=== PATIENT | female | born 1995 | race Two or more races ===

== ENCOUNTER 2018-03-25 04:59 | Emergency (ER) | payer MEDICAID ==
[~2018-03-25] VITALS: Ht 152.4 cm; Wt 70.3 kg
[2018-03-25 05:02] VITALS: Ht 152.4 cm; Wt 70.3 kg
[2018-03-25 06:29] LABS: microscopic required? YES; urine erythrocyte 2+ (NEGATIVE)
[2018-03-25 06:33] LABS: BASOPHIL % 0.3 % (0-2); PLATELET COUNT 253 x10^3mcL (130-400); RED CELL DISTRIBUTION WIDTH 14.1 % (11.5-14.5)
[2018-03-25 07:46] VITALS: BP 101/54
== END 2018-03-25 07:46 | disposition home or self-care (01) ==
LOC: ED 04:59
PROVIDERS: Emergency Medicine
DX: O20.0 Threatened abortion (principal)
CPT/HCPCS: 36415